=== PATIENT | female | born 1960 | race Caucasian/White ===

== ENCOUNTER → 2017-05-26 | Outpatient (CLI) | payer MEDICAID ==
[~2017-05-26] MED LIST: AMIODARONE 100100 MG NG; AMOXICILLIN 50500 MG PO; ASPIRIN 81MG TA81 MG PO; BACTRIM DS 8001 TA1 PO; BRILINTA90 MG PO; CHEWABLE ASPIRI81 MG PO; CIPRO 500MG TA500 MG PO; DIGOXIN0.25 M1 PO; DILTIAZEM CD 2240 MG PO; ETODOLAC400 MG PO; GOOD NEIGHBOR P20 M1 PO; HYDRALAZINE HCL25 M1 PO; LASIX 20MG. TAB20 MG PO; LIPITOR10 MG PO; LIPITOR80 M1 PO; LISINOPRIL 10MG10 MG PO; MECLIZINE25 MG PO; METOPROLOL SUC100 M1 PO; METOPROLOL TAR100 MG PO; NOVALIN 70/30 SC; NOVALOG 70/30 SC; NOVOLIN 70/30 710 ML SC; PACERONE200 MG PO; PHENERGAN25 M3 PO; PLAVIX 75MG TAB75 MG PO; PRADAXA75 M1 PO; PRINIVIL10 MG PO; PYRIDIUM 200MG200 MG PO; TESSALON PERLE100 MG PO; WARFARIN SODIUM6 MG PO; XARELTO20 MG PO
[2017-05-26 19:00] LABS: HEMOGLOBIN 11.8 g/dL (12.2-16.2); LYMPH # 1.8 K/mm3 (0.7-4.5); LYMPH % 20.3 % (10-50.0)
[2017-05-26 19:31] LABS: BUN 19 mg/dL (7-18)
[2017-05-26 19:32] LABS: GFR (ESTIMATED) 51 ML/MIN (59-)
== END ==
LOC: LAB 18:51
PROVIDERS: Nurse Practitioner Family
DX: E11.9 Type 2 diabetes mellitus without complications (principal); E78.5 Hyperlipidemia, unspecified